=== PATIENT | female | born 1995 | race Caucasian/White ===

== ENCOUNTER 2017-02-14 19:19 | Emergency (ER) | payer OTHER ==
[~2017-02-14] VITALS: Ht 162.6 cm; Wt 84.1 kg
[2017-02-14 19:21] VITALS: BP 158/87; PULSE 84; TEMP 99.1
[2017-02-14] MEDS ORDERED: SPRINTEC 35 MCG1 TAB PO (19:24)
== END 2017-02-14 20:07 | disposition home or self-care (01) ==
LOC: COL.ER 19:19
DX: S61.412A Laceration without foreign body of left hand, initial encounter (principal); W26.8XXA Contact with other sharp object(s), not elsewhere classified, initial encounter; Y92.69 Other specified industrial and construction area as the place of occurrence of the external cause

== ENCOUNTER 2017-02-24 19:28 | Emergency (ER) | payer OTHER ==
[~2017-02-24 19:28] MED LIST: SPRINTEC 35 MCG1 TAB PO
[2017-02-24 19:56] VITALS: BP 134/74; PULSE 76; TEMP 98.4
== END 2017-02-24 20:10 | disposition home or self-care (01) ==
LOC: COL.ER 19:28
DX: Z48.02 Encounter for removal of sutures (principal)